=== PATIENT | male | born 1985 | race Two or more races ===

== ENCOUNTER 2016-12-03 06:05 | Emergency (ER) | payer BC ==
[~2016-12-03] VITALS: Ht 175.3 cm; Wt 136.1 kg
[2016-12-03 06:14] VITALS: BP 148/104
[2016-12-03] MEDS ORDERED: LIDOCAINE 1%-EPI 1:100,000 20 ML VIAL TP ONE (06:30)
[2016-12-03] MEDS ORDERED: IBUPROFEN 400 MG TABLET PO ONE (06:30)
[2016-12-03] MEDS ORDERED: LIDOCAINE 2%-EPI 1:100,000 30 ML VIAL ONE (06:36)
[2016-12-03] MEDS ORDERED: IBUPROFEN 400 MG TABLET ONE (06:49)
[2016-12-03] MEDS ORDERED: LIDOCAINE 2%-EPI 1:100,000 30 ML VIAL TP ONE (07:00)
== END 2016-12-03 07:21 | disposition home or self-care (01) ==
LOC: ER 06:16
DX: L03.113 Cellulitis of right upper limb (principal); F32.9 Major depressive disorder, single episode, unspecified
CPT/HCPCS: A4606; J3490; Z7610